=== PATIENT | male | born 1995 | race Caucasian/White ===

== ENCOUNTER 2018-10-29 18:14 | Emergency (ER) | payer SELFPAY ==
[~2018-10-29] VITALS: Ht 185.4 cm; Wt 93.9 kg
[2018-10-29] MEDS ORDERED: ZIPRASIDONE IM 20 MG VIAL. IM ONE ×2 (19:08→19:45)
[2018-10-29] MEDS ORDERED: MIDAZOLAM HCL/PF 5 MG/5 ML VIAL. IM ONE (20:00)
[2018-10-29] MEDS ORDERED: IV NORMAL SALINE 1000ML BAG 1,000 ML IV ONE (21:00)
[2018-10-29 21:12] LABS: BASO % 1 % (0-3); EOS % 0 % (0-3); HEMATOCRIT 44.9 % (39.0-53.0); HEMOGLOBIN 15.4 g/dL (13.0-17.5); LYMPH % 26 % (24-48); MEAN CORPUSCULAR HEMOGLOBIN 31 pg (25-35); MEAN CORPUSCULAR HGB CONC 34 g/dL (31-37); MEAN CORPUSCULAR VOLUME 90 fL (79-100); MONO # 0.3 x10^3/uL (0.0-1.1); MONO % 4 % (0-9); NEUT # 5.4 x10^3uL (1.8-7.7); NEUT % 70 % (31-73); PLATELET COUNT 267 x10^3/uL (140-400); RED BLOOD COUNT 4.96 x10^6/uL (4.30-5.70); RED CELL DISTRIBUTION WIDTH 13.2 % (11.5-14.5); WHITE BLOOD COUNT 7.8 x10^3/uL (4.0-11.0)
[2018-10-29 21:26] LABS: CALCIUM 8.9 mg/dL (8.5-10.1); CREATININE 1.1 mg/dL (0.7-1.3); GFR 84.5; POTASSIUM 3.6 mmol/L (3.5-5.1)
[2018-10-29 21:32] LABS: BARBITURATES NEG (NEG); BENZODIAZEPINES NEG (NEG); CANNABINOIDS POS (NEG); COCAINE NEG (NEG); METHADONE NEG (NEG); OPIATES NEG (NEG); PHENCYCLIDINE NEG (NEG)
[2018-10-29 21:33] LABS: AMPHETAMINE/METHAMPHETAMINE NEG (NEG)
[2018-10-29 21:48] LABS: ALBUMIN 4.4 g/dL (3.4-5.0); ALBUMIN/GLOBULIN RATIO 1.1 (1.0-1.7); TOTAL BILIRUBIN 0.4 mg/dL (0.2-1.0); TOTAL PROTEIN 8.5 g/dL (6.4-8.2)
--- NOTE | 2018-10-29 22:26 | RAD ---
CT Head W/O Contrast: History: Acute mental status change, alcohol abuse and trauma Comparison: none Axial images were obtained without contrast. The washburn and white matter appears normal and symmetrical for the patients age. There is no mass effect, extraaxial fluid collections or hydrocephalus. There is no gross bleed. There is no focal loss of washburn-white matter distinction to suggest acute ischemia, i.e. stroke. There has been prior mastoidectomy on the left. Impression: No acute findings. RS Compliance Statement: One or more of the following individualized dose reduction techniques were utilized for this examination: 1. Automated exposure control 2. Adjustment of the mA and/or kV according to patient size 3. Use of iterative reconstruction technique Electronically signed by: Saul Walsh III, MD (10/29/2018 10:23 PM) [facility]
[2018-10-30 01:41] VITALS: BP 118/42
--- NOTE | 2018-10-30 05:46 | PHYS DOC ---
Past Medical History Past Medical History: Unknown Past Surgical History: Other Additional Information: PATIENT WILL NOT ANSWER QUESTIONS, PATIENT IS BEING LOUD AND OBNOXIOUS, AND NOT FOLLOWING COMMANDS. Alcohol Use: Heavy Additional Information: PATIENT HAS A LARGE AMOUNT OF ETOH ON BOARD AT THIS TIME. Adult General Chief Complaint Chief Complaint: ALTERED MENTAL STATUS HPI HPI Patient is a 23 year old m [facility] ams. was lying in the parking lot unable to get up no trauma. positive etoh. pt was verbally abusive on the way in. Review of Systems Review of Systems jeong by acuity Current Medications Current Medications Current Medications Medications (Trade) Dose Ordered Sig/Demetrio Start Time Stop Time Status Last Admin Dose Admin Midazolam HCl (Versed) 5 mg 1X ONCE 10/29/18 20:00 10/29/18 20:01 DC 10/29/18 19:59 5 MG Sodium Chloride 1,000 ml @ 1,000 mls/hr 1X ONCE 10/29/18 21:00 10/29/18 21:59 DC 10/29/18 21:00 1,000 MLS/HR Ziprasidone (Geodon Im) 20 mg 1X ONCE 10/29/18 19:45 10/29/18 19:46 DC 10/29/18 19:36 20 MG Allergies Allergies Allergies Coded Allergies Type Severity Reaction Last Updated Verified Unable to Assess 10/29/18 No Physical Exam Physical Exam Constitutional: Well developed, agitated HENT: Normocephalic, atraumatic, bilateral external ears normal, oropharynx moist, no oral exudates, nose normal. [] Eyes: PERRLA, EOMI, conjunctiva normal, no discharge. [] Neck: Normal range of motion, no tenderness, supple, no stridor. [] Cardiovascular:Heart rate regular rhythm, no murmur [] Lungs & Thorax: Bilateral breath sounds clear to auscultation [] Skin: Warm, dry, no erythema, no rash. [] Back: No tenderness, no CVA tenderness. [] Extremities: No tenderness, no cyanosis, no clubbing, ROM intact, no edema. [] Neurologic/psych, moving all ext, pupils 4 mm reactive, follows commands. Patient was agitated throughout the emergency room visit verbal redirection multiple times was ultimately unsuccessful he required restraints Current Patient Data Vital Signs Vital Signs Date Time Temp Pulse Resp B/P (MAP) Pulse Ox O2 Delivery O2 Flow Rate FiO2 10/30/18 01:41 83 18 118/42 (67) 97 2.0 10/29/18 22:58 Nasal Cannula 10/29/18 18:14 98.6 98.6 Lab Values Laboratory Tests Test 10/29/18 18:19 10/29/18 21:00 Urine Opiates Screen Neg (NEG) Urine Methadone Screen Neg (NEG) Urine Barbiturates Neg (NEG) Urine Phencyclidine Screen Neg (NEG) Urine Amphetamine/Methamphetamine Neg (NEG) Urine Benzodiazepines Screen Neg (NEG) Urine Cocaine Screen Neg (NEG) Urine Cannabinoids Screen Pos (NEG) Urine Ethyl Alcohol Pos (NEG) White Blood Count 7.8 x10^3/uL (4.0-11.0) Red Blood Count 4.96 x10^6/uL (4.30-5.70) Hemoglobin 15.4 g/dL (13.0-17.5) Hematocrit 44.9 % (39.0-53.0) Mean Corpuscular Volume 90 fL (79-100) Mean Corpuscular Hemoglobin 31 pg (25-35) Mean Corpuscular Hemoglobin Concent 34 g/dL (31-37) Red Cell Distribution Width 13.2 % (11.5-14.5) Platelet Count 267 x10^3/uL (140-400) Neutrophils (%) (Auto) 70 % (31-73) Lymphocytes (%) (Auto) 26 % (24-48) Monocytes (%) (Auto) 4 % (0-9) Eosinophils (%) (Auto) 0 % (0-3) Basophils (%) (Auto) 1 % (0-3) Neutrophils # (Auto) 5.4 x10^3uL (1.8-7.7) Lymphocytes # (Auto) 2.0 x10^3/uL (1.0-4.8) Monocytes # (Auto) 0.3 x10^3/uL (0.0-1.1) Eosinophils # (Auto) 0.0 x10^3/uL (0.0-0.7) Basophils # (Auto) 0.0 x10^3/uL (0.0-0.2) Sodium Level 144 mmol/L (136-145) Potassium Level 3.6 mmol/L (3.5-5.1) Chloride Level 104 mmol/L (98-107) Carbon Dioxide Level 28 mmol/L (21-32) Anion Gap 12 (6-14) Blood Urea Nitrogen 10 mg/dL (8-26) Creatinine 1.1 mg/dL (0.7-1.3) Estimated GFR (Cockcroft-Gault) 84.5 BUN/Creatinine Ratio 9 (6-20) Glucose Level 106 mg/dL (70-99) H Calcium Level 8.9 mg/dL (8.5-10.1) Total Bilirubin 0.4 mg/dL (0.2-1.0) Aspartate Amino Transferase (AST) 28 U/L (15-37) Alanine Aminotransferase (ALT) 34 U/L (16-63) Alkaline Phosphatase 81 U/L (46-116) Total Protein 8.5 g/dL (6.4-8.2) H Albumin 4.4 g/dL (3.4-5.0) Albumin/Globulin Ratio 1.1 (1.0-1.7) Ethyl Alcohol Level 281 mg/dL (0-10) H Laboratory Tests 10/29/18 21:00 Laboratory Tests 10/29/18 21:00 EKG EKG [] Radiology/Procedures Radiology/Procedures [] Impressions: Axial images were obtained without contrast. The washburn and white matter appears normal and symmetrical for the patients age. There is no mass effect, extraaxial fluid collections or hydrocephalus. There is no gross bleed. There is no focal loss of washburn-white matter distinction to suggest acute ischemia, i.e. stroke. There has been prior mastoidectomy on the left. Impression: No acute findings. PQRS Compliance Statement: One or more of the following individualized dose reduction techniques were utilized for this examination: 1. Automated exposure control 2. Adjustment of the mA and/or kV according to patient size 3. Use of iterative reconstruction technique Electronically signed by: Kapil Joyner III, MD (10/29/2018 10:23 PM) [facility] DICTATED and SIGNED BY: KAPIL JOYNER III, MD DATE: 10/29/182222 Course & Med Decision Making Course & Med Decision Making Pertinent Labs and Imaging studies reviewed. (See chart for details) []He required medical sedation as well as monitor him closely we performed a CAT scan that was negative labs looked good after several hours he woke up and was discharged within the care of a friend. Dragon Disclaimer Dragon Disclaimer This electronic medical record was generated, in whole or in part, using a voice recognition dictation system. Departure Departure Impression: Primary Impression: Alcohol abuse Disposition: 01 HOME, SELF-CARE Condition: STABLE Referrals: NO PCP (PCP) Patient Instructions: Alcohol Intoxication, [id number] PIERO CURTIS MD October 30, 2018 05:46
== END 2018-10-30 02:45 | disposition home or self-care (01) ==
LOC: ER 18:14
DX: F10.10 Alcohol abuse, uncomplicated (principal); Y90.8 Blood alcohol level of 240 mg/100 ml or more; R41.82 Altered mental status, unspecified
CPT/HCPCS: 36415; 70450; 80053; 80307; 82962; 85025; 96360; 96372; 99285; G0480; J2250; J3486; J7030